=== PATIENT | male | born 1960 | race Caucasian/White ===

== ENCOUNTER 2016-09-26 06:27 | Day surgery (SDC) | payer OTHER ==
--- NOTE | ~2016-09-26 | EGD ---
EGD REPORT [facility] [address] [address] NAME: NIK VILLALBA JR : 60 STATUS : REG [facility] [place] PAT#: [id number] AGE: 56 ADM/REG DATE : 09/26/16 MR#: [id number] REPORT SERV DATE: 09/26/16 DICTATED BY: CECILIA TOM DATE: 09/26/16 REPORT STATUS : Draft TRANSCRIBED BY: [employer] DATE: 09/26/16 [facility] Patient Name: Nik Villalba Date of : 1960 Attending MD: CECILIA TOM MD Procedure Date No Time: 09/26/2016 Procedure: Colonoscopy Indications: FH of Colonic Polyps - 1st degree relative, Personal history of ulcerative colitis Referring MD: SHASHANK CONSTANTINO MD Medicines: as per anesthesia Complications: No immediate complications. Procedure: Pre-Anesthesia Assessment: - ASA Grade Assessment: II - A patient with mild systemic disease. After I obtained informed consent, the scope was passed under direct vision. Throughout the procedure, the patient's blood pressure, pulse, and oxygen saturations were monitored continuously. The PCF [id number] was introduced through the anus and advanced to the cecum, identified by appendiceal orifice and ileocecal valve. The colonoscopy was performed without difficulty. The patient tolerated the procedure. The quality of the bowel preparation was fair. Findings: The perianal and digital rectal examinations were normal. no active colitis Four biopsies were obtained in the rectum, in the sigmoid colon, in the transverse colon and in the ascending colon with cold forceps for histology. Internal hemorrhoids were found during endoscopy and were mild. Impression: - Internal hemorrhoids. - Four biopsies were obtained in the rectum, in the sigmoid colon, in the transverse colon and in the ascending colon. Recommendation: - Await pathology results. - Repeat colonoscopy for surveillance based on pathology results. Procedure Code(s): --- Professional --- 58549, Colonoscopy, flexible, proximal to splenic flexure; with biopsy, single or multiple EGD REPORT [facility] [address] [place], [place] [address] [address] NAME: NIK VILLALBA JR : 60 STATUS : REG [facility]#: [id number] AGE: 56 ADM/REG DATE : 09/26/16 MR#: [id number] REPORT SERV DATE: 09/26/16 DICTATED BY: CECILIA TOM. DATE: 09/26/16 REPORT STATUS : Draft TRANSCRIBED BY: [employer] DATE: 09/26/16 Diagnosis Code(s): --- Professional --- K64.8, Other hemorrhoids Z83.71, Family history of colonic polyps Z87.19, Personal history of other diseases of the digestive system CPT copyright 2013 [employer]. All rights reserved. The codes documented in this report are preliminary and upon program therapist review may be revised to meet current compliance requirements. CECILIA TOM MD 09/26/2016 8:47 AM This report has been signed electronically. Number of Addenda: 0 Note Initiated On: 09/26/2016 8:10 AM Scope Withdrawal Time 0 hours 11 minutes 13 seconds [address] [facility] [place] [id number]
[~2016-09-26 06:27] MED LIST: APRISO0.375 GM PO; [UNRECOGNIZED DRUG - REMARK]
== END 2016-09-26 23:59 | disposition home or self-care (01) ==
LOC: DMU 06:27
PROVIDERS: Internal Medicine Gastroenterology
PROC: 0DBK8ZX Excision of Ascending Colon, Via Natural or Artificial Opening Endoscopic, Diagnostic (ICD-10-PCS; 2016-09-26)
PROC: 0DBL8ZX Excision of Transverse Colon, Via Natural or Artificial Opening Endoscopic, Diagnostic (ICD-10-PCS; 2016-09-26)
PROC: 0DBN8ZX Excision of Sigmoid Colon, Via Natural or Artificial Opening Endoscopic, Diagnostic (ICD-10-PCS; 2016-09-26)
PROC: 0DBP8ZX Excision of Rectum, Via Natural or Artificial Opening Endoscopic, Diagnostic (ICD-10-PCS; principal; 2016-09-26 08:00)
DX: K64.8 Other hemorrhoids (principal); K51.90 Ulcerative colitis, unspecified, without complications; M19.90 Unspecified osteoarthritis, unspecified site; Z87.19 Personal history of other diseases of the digestive system; Z83.71 Family history of colonic polyps; Z79.899 Other long term (current) drug therapy
CPT/HCPCS: 88305